=== PATIENT | male | born 1990 | race Caucasian/White ===

== ENCOUNTER 2021-05-14 00:07 | Inpatient (IN) | payer MEDICAID, OTHER ==
[~2021-05-14] VITALS: Ht 170.2 cm; Wt 81.8 kg
[2021-05-14] MEDS ORDERED: ZOLPIDEM TARTRATE 10 MG TABLET PO PRN (01:30)
[2021-05-14] MEDS ORDERED: LORazepam 2 MG/ML VIAL ONE (01:41)
[2021-05-14] MEDS ORDERED: DiphenhydrAMINE HCL 50 MG/ML VIAL ONE (01:42)
[2021-05-14] MEDS ORDERED: HALOPERIDOL LACTATE 5 MG/ML VIAL ONE (01:42)
[2021-05-14 01:50] LABS: COVID AG,FIA SOURCE NASOPHARYNGEAL
[2021-05-14] MEDS ORDERED: DiphenhydrAMINE HCL 50 MG/ML VIAL IM ONE ×2 (02:00→09:00)
[2021-05-14] MEDS ORDERED: HALOPERIDOL LACTATE 5 MG/ML VIAL IM ONE ×2 (02:00→09:00)
[2021-05-14] MEDS ORDERED: LORazepam 2 MG/ML VIAL IM ONE ×2 (02:00→09:00)
[2021-05-14 02:08] LABS: BASOPHILS % (AUTO) 0.3 % (0.0-2.0); EOSINOPHILS % (AUTO) 0.2 % (1.0-6.0); HEMATOCRIT 44.3 % (41-53); HEMOGLOBIN 14.8 g/dL (13.5-17.5); LYMPHOCYTES # (AUTO) 1.8 K/uL (1.0-4.8); LYMPHOCYTES % (AUTO) 17.5 % (22.0-44.0); MEAN CORPUSCULAR HEMOGLOBIN 30.2 pg (26.0-34.0); MEAN CORPUSCULAR HGB CONC 33.4 G/dL (31.0-37.0); MEAN CORPUSCULAR VOLUME 90 fL (80-100); MONOCYTES # (AUTO) 0.6 K/uL (0.1-1.0); MONOCYTES % (AUTO) 6.3 % (2.0-9.0); NEUTROPHILS # (AUTO) 7.6 K/uL (1.8-7.7); NEUTROPHILS % (AUTO) 75.7 % (40.0-70.0); PLATELET COUNT (AUTO) 236 K/uL (150-450); RED BLOOD CELL COUNT(AUTO) 4.91 MIL/uL (4.50-5.90); RED CELL DISTRIBUTION WIDTH 13.2 % (11.5-14.5)
[2021-05-14 02:15] LABS: ANION GAP 10 mmol/L (8-16); CALCIUM, TOTAL 9.3 mg/dL (8.8-10.5); CARBON DIOXIDE 28 mmol/L (22-29); CHLORIDE 104 mmol/L (98-107); CREATININE 1.06 mg/dL (0.60-1.30); GLOMERULAR FILTR. RATE CALC > 60 mL/min (>60); GLUCOSE,RANDOM 103 mg/dL (70-110); POTASSIUM 3.8 mmol/L (3.5-5.1); SODIUM SERUM 142 mmol/L (136-145); UREA NITROGEN, BLOOD 17 mg/dL (7-18)
[2021-05-14 02:20] LABS: ALANINE AMINOTRANSFERASE 35 U/L (12-78); ALBUMIN 4.1 g/dL (3.4-5.0); ALKALINE PHOSPHATASE 86 U/L (46-116); ASPARTATE AMINOTRANSFERASE 27 U/L (15-37); BILIRUBIN,TOTAL 0.5 mg/dL (0.1-1.0); TOTAL PROTEIN, SERUM 7.7 g/dL (6.4-8.2)
[2021-05-14 02:20] LABS: APPEARANCE,URINE CLEAR (CLEAR); BILIRUBIN,URINE NEGATIVE (NEGATIVE); GLUCOSE, URINE (UA) NEGATIVE (NEGATIVE); KETONES,URINE TRACE mg/dL (NEGATIVE); LEUKOCYTE ESTERASE ,URINE NEGATIVE (NEGATIVE); NITRATE,URINE NEGATIVE (NEGATIVE); OCCULT BLOOD,URINE NEGATIVE (NEGATIVE); PROTEIN,URINE POS 1+ (NEGATIVE); UROBILINOGEN,URINE 0.2 mg/dL (<=1.0)
[2021-05-14 02:27] LABS: AMPHET/METH SCREEN,URINE POSITIVE (NEGATIVE); BARBITURATE SCREEN, URINE NEGATIVE (NEGATIVE); BENZODIAZEPINES SCREEN,URINE NEGATIVE (NEGATIVE); CANNABINOID SCREEN,URINE NEGATIVE (NEGATIVE); COCAINE SCREEN,URINE NEGATIVE (NEGATIVE); METHADONE SCREEN, URINE NEGATIVE (NEGATIVE); OPIATE SCREEN,URINE NEGATIVE (NEGATIVE)
[2021-05-14 02:30] LABS: PHENCYCLIDINE SCREEN,URINE NEGATIVE (NEGATIVE)
[2021-05-14 02:49] LABS: BACTERIA,URINE Few /HPF (None Seen); RBC,URINE None Seen /HPF (0-2); SQUAMOUS EPITHELIAL CELL,UR None Seen /LPF (None Seen)
[2021-05-14 05:09] VITALS: BP 125/70
[2021-05-14] MEDS ORDERED: OMEPRAZOLE 20 MG CAPSULE PO PRN (06:00)
[2021-05-14] MEDS ORDERED: ONDANSETRON HCL 4 MG TABLET PO PRN (06:00)
[2021-05-14] MEDS ORDERED: PETROLATUM,WHITE 28 GM JELLY TP PRN (06:00)
[2021-05-14] MEDS ORDERED: BENZOCAINE/MENTHOL LOZENGE PO PRN (06:00)
[2021-05-14] MEDS ORDERED: ACETAMINOPHEN 325 MG TABLET PO PRN (06:00)
[2021-05-14] MEDS ORDERED: LOPERAMIDE HCL 2 MG CAPSULE PO PRN (06:00)
[2021-05-14] MEDS ORDERED: BACITRACIN 28 GM OINTMENT TP PRN (06:00)
[2021-05-14] MEDS ORDERED: DOCUSATE SODIUM 100 MG CAPSULE PO PRN (06:00)
[2021-05-14] MEDS ORDERED: MAG HYDROX/AL HYDROX/SIMETH ES 30 ML SUSPENSION UDCUP PO PRN (06:00)
[2021-05-14] MEDS ORDERED: MAGNESIUM HYDROXIDE SUSPENSION 30 ML UDCUP PO PRN (06:00)
[2021-05-14] MEDS ORDERED: CloNIDine HCL 0.1 MG TABLET PO PRN (06:00)
[2021-05-14] MEDS ORDERED: IBUPROFEN 600 MG TABLET PO PRN (06:00)
[2021-05-14] MEDS ORDERED: ALBUTEROL SULFATE HFA 90 MCG/PUFF 8 GM INHALER IH PRN (06:00)
[2021-05-14 08:13] VITALS: BP 127/66
[2021-05-14] MEDS: LORazepam 2 MG TABLET PO PRN ×2 (10:08→17:47)
[2021-05-14 16:14] VITALS: BP 114/64
[2021-05-14] MEDS: RisperiDONE 1 MG TABLET PO SCH (20:11)
[2021-05-15 00:16] VITALS: BP 112/66
[2021-05-15] MEDS: LORazepam 2 MG TABLET PO PRN ×2 (07:00→19:07)
[2021-05-15] MEDS: HALOPERIDOL 5 MG TABLET PO PRN (08:15)
[2021-05-15 08:40] VITALS: BP 104/59
[2021-05-15] MEDS: RisperiDONE 1 MG TABLET PO SCH (08:45)
[2021-05-15 16:15] VITALS: BP 107/62
[2021-05-15] MEDS: QUEtiapine FUMARATE 300 MG TABLET PO SCH (21:26)
[2021-05-16 08:04] VITALS: BP 102/63
[2021-05-16] MEDS: LORazepam 2 MG TABLET PO PRN (09:04)
[2021-05-16] MEDS: HALOPERIDOL 5 MG TABLET PO PRN (09:04)
[2021-05-16 16:12] VITALS: BP 118/63
[2021-05-16] MEDS: QUEtiapine FUMARATE 300 MG TABLET PO SCH (20:22)
[2021-05-17 08:37] VITALS: BP 98/61
[2021-05-17] MEDS: LORazepam 2 MG TABLET PO PRN (08:51)
[2021-05-17] MEDS: HALOPERIDOL 5 MG TABLET PO PRN (08:51)
[2021-05-17] MEDS ORDERED: QUET100T PO (10:38)
== END 2021-05-17 11:10 | disposition home or self-care (01) | DRG 750 ==
LOC: EDBD 00:09 → EMS 00:09 → B3A 01:26
PROVIDERS: ADMIT Psychiatry & Neurology Psychiatry; ATTEND Psychiatry & Neurology Psychiatry
DX: F25.9 Schizoaffective disorder, unspecified (principal); Z78.1 Physical restraint status; F31.9 Bipolar disorder, unspecified; F41.9 Anxiety disorder, unspecified; F12.10 Cannabis abuse, uncomplicated; G47.00 Insomnia, unspecified; K59.00 Constipation, unspecified; F17.210 Nicotine dependence, cigarettes, uncomplicated; Z20.822 Contact with and (suspected) exposure to COVID-19; Z88.8 Allergy status to other drugs, medicaments and biological substances; Z71.6 Tobacco abuse counseling; Z71.51 Drug abuse counseling and surveillance of drug abuser
CPT/HCPCS: 80053; 80061; 81001; 85025; 99291; G0480; J1200; J1630; J2060